=== PATIENT | male | born 1970 | race Caucasian/White ===

== ENCOUNTER 2022-03-22 09:59 | Day surgery (SDC) | payer OTHER ==
[2022-03-20 09:47] LABS: BASOPHILS % (AUTO) 0.6 % (0-1); EOSINOPHILS # (AUTO) 0.1 X10'3 (0-0.9); EOSINOPHILS % (AUTO) 1.1 % (0-6); HEMATOCRIT 41.4 % (42.0-52.0); HEMOGLOBIN 14.2 g/dl (14.0-17.9); LYMPHOCYTES % (AUTO) 26.5 % (21-51); MEAN CORPUSCULAR HEMOGLOBIN 31.2 PG (27.0-31.0); MEAN CORPUSCULAR HGB CONC 34.3 g/dL (33.0-36.5); MEAN CORPUSCULAR VOLUME 91.1 FL (78-98); MEAN PLATELET VOLUME 8.4 FL (7.4-10.4); MONOCYTES # (AUTO) 0.5 X10'3 (0-0.9); MONOCYTES % (AUTO) 6.1 % (2-12); NEUTROPHILS # (AUTO) 5.1 X10'3 (1.8-7.7); NEUTROPHILS % (AUTO) 65.7 % (42-75); PLATELET COUNT 223 X10'3 (140-440); RED BLOOD COUNT 4.54 X10'6 (4.70-6.10); RED CELL DISTRIBUTION WIDTH 13.8 % (11.5-14.5); WHITE BLOOD COUNT 7.7 X10'3 (4.5-11.0)
[2022-03-20 10:00] LABS: APTT 26 SECONDS (22-32)
[2022-03-20 10:05] LABS: ALANINE AMINOTRANSFERASE 18 U/L (12-78); ALBUMIN 3.9 G/DL (3.4-5.0); ALBUMIN/GLOBULIN RATIO 1.1 (1.1-1.5); ALKALINE PHOSPHATASE 49 IU/L (46-116); ANION GAP 11 (8-16); ASPARTATE AMINO TRANSFERASE 10 U/L (10-37); BILIRUBIN,TOTAL 0.2 MG/DL (0.1-1.0); BLOOD UREA NITROGEN 17 MG/DL (7-18); BUN/CREATININE RATIO 19.1 (5.4-32.0); CALCIUM 9.2 MG/DL (8.5-10.1); CHLORIDE 105 MMOL/L (99-107); CREATININE 0.89 MG/DL (0.60-1.10); GLUCOSE 169 MG/DL (70-104); POTASSIUM 4.1 MMOL/L (3.5-5.1); SODIUM 141 MMOL/L (135-145); TOTAL CARBON DIOXIDE 24.9 MMOL/L (24-32); TOTAL PROTEIN 7.3 G/DL (6.4-8.2); eGFR 89 ML/MIN
[2022-03-22] VITALS (12 sets, daily range): BP systolic 138–173; BP diastolic 77–102
[~2022-03-22] VITALS: Ht 182.9 cm; Wt 90.4 kg
[2022-03-22] MEDS ORDERED: diphenhydrAMINE 25mg capsule PO PRN (10:25)
[2022-03-22] MEDS ORDERED: normal saline 1,000 ML IV SCH (10:25)
[2022-03-22] MEDS ORDERED: LORazepam 0.5 MG tablet PO PRN (10:25)
[2022-03-22] MEDS ORDERED: nitroGLYCERIN 0.4mg SUBLingual tab SL PRN (10:25)
[2022-03-22] MEDS ORDERED: PANT40TA54 PO (10:26)
[2022-03-22] MEDS ORDERED: ATOR20TA66 PO (10:26)
[2022-03-22] MEDS ORDERED: PIOG30TA71 PO (10:26)
[2022-03-22] MEDS ORDERED: GLIM4TAB7 PO (10:26)
[2022-03-22] MEDS ORDERED: METF-438 PO (10:26)
[2022-03-22] MEDS ORDERED: LISI40TA13 PO (10:26)
[2022-03-22] MEDS ORDERED: iohexol 300mg/ml 100ml inj. ONE (11:33)
[2022-03-22] MEDS ORDERED: midazolam 1 mg/ML 2ml injection ONE ×2 (11:33→12:30)
[2022-03-22] MEDS ORDERED: fentaNYL/PF 50MCG/1 ML 2ML syringe ONE ×2 (11:33→12:30)
[2022-03-22] MEDS ORDERED: LIDOcaine 1% 30ml preserv. free vial ONE (11:35)
[2022-03-22] MEDS ORDERED: iohexol 350MG/ML 100ml bottle IV ONE (12:08)
[2022-03-22] MEDS ORDERED: enalaprilat dihydrate 2.5mg/2ml vial IV ONE ×2 (12:20→12:30)
[2022-03-22] MEDS ORDERED: HYDROmorphone 1 mg/ml syringe ONE (12:21)
[2022-03-22] MEDS ORDERED: nitroGLYCERIN-Tridil 50MG/D5W 250 ML IV ONE (12:26)
[2022-03-22] MEDS ORDERED: pantoprazole 40mg Tablet.DR PO SCH (13:00)
[2022-03-22] MEDS ORDERED: normal saline 1000ml 1,000 ML IV SCH (13:10)
[2022-03-22] MEDS ORDERED: HYDROcodone/acetaminophen 10/325mg tab PO PRN (13:10)
[2022-03-22] MEDS ORDERED: ondansetron/PF 4mg/2ml inj IV PRN (13:10)
[2022-03-22] MEDS ORDERED: proCHLORperazine 10 MG/2 ml inj IV PRN (13:10)
[2022-03-22] MEDS ORDERED: HYDROcodone/acetaminophen 5mg/325mg tablet PO PRN (13:10)
[2022-03-22] MEDS ORDERED: HYDROmorphone 1 mg/ml syringe IV ONE (13:15)
[2022-03-22] MEDS ORDERED: lisinopril 20mg tablet PO ONE (13:15)
[2022-03-22] MEDS ORDERED: lisinopril 20mg tablet PO SCH (13:15)
== END 2022-03-22 19:00 | disposition home or self-care (01) ==
LOC: SSTAY O 09:59
PROVIDERS: ATTEND Internal Medicine Cardiovascular Disease
DX: R94.39 Abnormal result of other cardiovascular function study (principal); I25.10 Atherosclerotic heart disease of native coronary artery without angina pectoris; E11.9 Type 2 diabetes mellitus without complications; I10 Essential (primary) hypertension; K21.9 Gastro-esophageal reflux disease without esophagitis; E78.5 Hyperlipidemia, unspecified; Z72.89 Other problems related to lifestyle; Z79.84 Long term (current) use of oral hypoglycemic drugs; Z79.899 Other long term (current) drug therapy; Z79.01 Long term (current) use of anticoagulants
CPT/HCPCS: 36415; 71046; 80053; 82948; 85025; 85610; 85730; 93005; 93458; 99152; 99153; C1760; C1769; J1170; J1644; J2250; J2405; J3010; J3490; J7030; Q0163; Q9967; A6258